=== PATIENT | female | born 1995 | race Two or more races ===

== ENCOUNTER 2021-11-10 20:02 | Emergency (ER) | payer OTHER ==
[~2021-11-10] VITALS: Ht 157.5 cm; Wt 67.6 kg
[2021-11-10] MEDS ORDERED: ATABEX OB (20:37)
[2021-11-11] MEDS ORDERED: ZITHROMAX TRI-500 MG PO (00:02)
== END 2021-11-11 00:10 | disposition home or self-care (01) ==
LOC: ER 20:02
DX: O99.511 Diseases of the respiratory system complicating pregnancy, first trimester (principal); Z3A.11 11 weeks gestation of pregnancy; J06.9 Acute upper respiratory infection, unspecified; A49.3 Mycoplasma infection, unspecified site

== ENCOUNTER → 2022-02-04 | Outpatient (CLI) | payer OTHER ==
[~2022-02-04] MED LIST: ATABEX OB; CLARITIN10 M1 PO; PRENATAL TABLE1 EAC1 PO; ZITHROMAX TRI-500 MG PO
== END | disposition home or self-care (01) ==
LOC: OBS/DEL 03:59
PROVIDERS: ATTEND Obstetrics & Gynecology
DX: O98.812 Other maternal infectious and parasitic diseases complicating pregnancy, second trimester (principal); Z3A.24 24 weeks gestation of pregnancy

== ENCOUNTER → 2022-03-21 | Emergency (ER) | payer OTHER ==
[~2022-03-21] VITALS: Ht 157.5 cm; Wt 71.7 kg
== END | disposition home or self-care (01) ==
LOC: ER 12:22
DX: J06.9 Acute upper respiratory infection, unspecified (principal); Z87.09 Personal history of other diseases of the respiratory system

== ENCOUNTER 2022-04-06 19:52 | Emergency (ER) | payer OTHER ==
[~2022-04-06] VITALS: Ht 157.5 cm; Wt 72.6 kg
[2022-04-06] MEDS ORDERED: ZITHROMAX500 MG PO (22:46)
[2022-04-06] MEDS ORDERED: XOPENEX0.63 MG/3 IH (22:46)
== END 2022-04-06 22:49 | disposition home or self-care (01) ==
LOC: ER 19:52
DX: R06.02 Shortness of breath (principal); R05.9 Cough, unspecified; Z20.822 Contact with and (suspected) exposure to COVID-19

== ENCOUNTER 2022-05-29 07:20 | Inpatient (IN) | payer OTHER ==
[~2022-05-29] VITALS: Ht 157.5 cm; Wt 73.9 kg
[~2022-05-29 07:20] MED LIST changes: +XOPENEX0.63 MG/3 IH; +ZITHROMAX500 MG PO
[2022-05-29] MEDS ORDERED: ATABEX OB TABL1 EACH (14:24)
== END 2022-06-01 12:34 | disposition home or self-care (01) | DRG 807 ==
LOC: LDR 07:20 → OB/GYN 05-30 13:37
PROVIDERS: ADMIT Obstetrics & Gynecology; ATTEND Obstetrics & Gynecology
PROC: 10E0XZZ Delivery of Products of Conception, External Approach (ICD-10-PCS; principal; 2022-05-29)
PROC: 0KQM0ZZ Repair Perineum Muscle, Open Approach (ICD-10-PCS; 2022-05-29)
PROC: 4A1HXCZ Monitoring of Products of Conception, Cardiac Rate, External Approach (ICD-10-PCS; 2022-05-29)
DX: O70.1 Second degree perineal laceration during delivery (principal); Z37.0 Single live birth; Z3A.40 40 weeks gestation of pregnancy; Z20.822 Contact with and (suspected) exposure to COVID-19